=== PATIENT | female | born 1995 | race Caucasian/White ===

== ENCOUNTER 2017-12-07 01:04 | Emergency (ER) | payer OTHER ==
[2017-12-07 01:22] VITALS: RESP 20
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
[2017-12-07 03:46] VITALS: BP 120/72; PULSE 72; TEMP 98; O2SAT 98
--- NOTE | 2017-12-07 11:46 | RAD ---
Date of service: 12/07/2017 PROCEDURE: Cervical Spine Radiographs. HISTORY: Pain. COMPARISON: None. FINDINGS: BONES: Alignment maintained. Straightening of the cervical spine is noted. No fracture. Dens Intact. DISC SPACES: Normal. SOFT TISSUES: Normal. No prevertebral soft tissue swelling. OTHER FINDINGS: None. IMPRESSION: No evidence of acute fracture or subluxation. Straightening of the cervical spine.
== END 2017-12-07 03:45 | disposition home or self-care (01) ==
LOC: C.ER 01:04
DX: S16.1XXA Strain of muscle, fascia and tendon at neck level, initial encounter (principal); V89.2XXA Person injured in unspecified motor-vehicle accident, traffic, initial encounter; Y92.414 Local residential or business street as the place of occurrence of the external cause